=== PATIENT | female | born 1985 | race African-American/Black ===

== ENCOUNTER 2018-10-03 09:07 | Emergency (ER) | payer OTHER ==
[~2018-10-03] VITALS: Ht 170.2 cm; Wt 90.0 kg
[2018-10-03 09:10] VITALS: BP 119/75
[2018-10-03] MEDS ORDERED: OMEP10 PO (09:16)
== END 2018-10-03 10:40 | disposition home or self-care (01) ==
LOC: EMS 09:10
DX: J02.9 Acute pharyngitis, unspecified (principal); Z88.5 Allergy status to narcotic agent; Z88.6 Allergy status to analgesic agent